=== PATIENT | female | born 1990 | race Caucasian/White ===

== ENCOUNTER 2017-01-26 08:41 | Emergency (ER) | payer MEDICAID ==
[2017-01-26] MEDS ORDERED: MARCAINE-EPI 0.5%-1:200,000 INFILTRATI ONE (11:57)
[2017-01-26] MEDS ORDERED: MOTRIN PO ONE (11:57)
--- NOTE | 2017-01-26 11:57 | Emergency Department Report ---
ED Female HPI - General Chief complaint: Urogenital-Female Stated complaint: POSS CYST Time Seen by Provider: 01/26/17 11:39 Source: patient Mode of arrival: Ambulatory Limitations: No Limitations - History of Present Illness Initial comments: This is a 26-year-old female well-nourished with nontoxic or ill in appearance but presents with a right labia minora cyst 2 days. Patient denies history of Bartholin's cyst/abscess 6 that was incision and drainage. Patient denies any fever, chills, headache, pus, drainage, chest pain, shortness of breath, numbness, tingling, bowel pain, stiff neck. She denies any allergies. Denies past medical history. -: Gradual, days(s) (2) Location: labia (minora, right) Radiation: non-radiating Severity: mild Severity scale (0 -10): 10 Quality: aching Consistency: constant Improves with: none Worsens with: none Are you Now?: No Last Menstrual Period: 01/04/17 EDC: 10/11/17 Associated Symptoms: denies other symptoms. denies: vaginal discharge, vaginal bleeding, abdominal pain, nausea/vomiting, fever/chills, headaches, loss of appetite, dysuria, hematuria, rash, seizure, shortness of breath, syncope, weakness - Related Data Sexually active: Yes Previous Rx's Medication Instructions Recorded Last Taken Type Cephalexin [Keflex] 500 mg PO Q8HR 7 Days 01/26/17 Unknown Rx Ibuprofen [Motrin 600 MG tab] 600 mg PO Q8H PRN #20 tablet 01/26/17 Unknown Rx Allergies Allergy/AdvReac Type Severity Reaction Status Date / Time No Known Allergies Allergy Unverified 01/26/17 08:46 ED Review of Systems ROS: Stated complaint: POSS CYST Other details as noted in HPI Constitutional: denies: chills, fever Eyes: denies: eye pain, eye discharge, vision change ENT: denies: ear pain, throat pain Respiratory: denies: cough, shortness of breath, wheezing Cardiovascular: denies: chest pain, palpitations Endocrine: no symptoms reported Gastrointestinal: denies: abdominal pain, nausea, diarrhea Genitourinary: denies: urgency, dysuria, discharge Musculoskeletal: denies: back pain, joint swelling, arthralgia Skin: denies: rash, lesions Neurological: denies: headache, weakness, paresthesias Psychiatric: denies: anxiety, depression Hematological/Lymphatic: denies: easy bleeding, easy bruising ED Past Medical Hx - Past Medical History Previous Medical History?: Yes Additional medical history: Boil/ Bartholin cyst - Surgical History Past Surgical History?: Yes Additional Surgical History: x 3 - Social History Smoking Status: Never Smoker Substance Use Type: Non Opiate Pain - Medications Home Medications: Home Medications Medication Instructions Recorded Confirmed Last Taken Type Cephalexin [Keflex] 500 mg PO Q8HR 7 Days 01/26/17 Unknown Rx Ibuprofen [Motrin 600 MG tab] 600 mg PO Q8H PRN #20 tablet 01/26/17 Unknown Rx ED Physical Exam - General Limitations: No Limitations General appearance: alert, in no apparent distress - Head Head exam: Present: atraumatic, normocephalic, normal inspection - Eye Eye exam: Present: normal appearance, PERRL, EOMI. Absent: scleral icterus, conjunctival injection, nystagmus, periorbital swelling, periorbital tenderness Pupils: Present: normal accommodation - ENT ENT exam: Present: normal exam, normal orophraynx, mucous membranes moist, TM's normal bilaterally, normal external ear exam - Neck Neck exam: Present: normal inspection, full ROM. Absent: tenderness, meningismus, lymphadenopathy, thyromegaly - Respiratory Respiratory exam: Present: normal lung sounds bilaterally. Absent: respiratory distress, wheezes, rales, rhonchi, stridor, chest wall tenderness, accessory muscle use, decreased breath sounds, prolonged expiratory - Cardiovascular Cardiovascular Exam: Present: regular rate, normal rhythm, normal heart sounds. Absent: bradycardia, tachycardia, irregular rhythm, systolic murmur, diastolic murmur, rubs, gallop - GI/Abdominal GI/Abdominal exam: Present: soft, normal bowel sounds. Absent: distended, tenderness, guarding, rebound, rigid, diminished bowel sounds - Rectal Rectal exam: Present: deferred - External exam: Present: normal external exam, swelling (right labia minora. No pus. No drainage. Tender to touch. No redness.), other (Fisher Hand Line Carneshia Delores present during exam and I/D.). Absent: erythema, lesions, lacerations , ecchymosis, bleeding - Extremities Exam Extremities exam: Present: normal inspection, full ROM, normal capillary refill. Absent: tenderness, pedal edema, joint swelling, calf tenderness - Back Exam Back exam: Present: normal inspection, full ROM. Absent: tenderness, CVA tenderness (R), CVA tenderness (L), muscle spasm, paraspinal tenderness, vertebral tenderness, rash noted - Neurological Exam Neurological exam: Present: alert, oriented X3, CN II-XII intact, normal gait - Psychiatric Psychiatric exam: Present: normal affect, normal mood - Skin Skin exam: Present: warm, dry, intact, normal color. Absent: rash ED Course Vital Signs 01/26/17 08:46 Temperature 99.3 F Pulse Rate 84 Respiratory 20 Rate Blood Pressure 103/83 O2 Sat by Pulse 99 Oximetry - Reevaluation(s) Reevaluation #1: 01/26/17 13:23 Patient tolerated procedure well with no signs of distress noted. - I & D Vagina Type of Procedure: Complex Site: right labia minora Blade Size: 11 I & D Procedure: betadine prep, sterile drapes applied Progress: Under sterile procedure, I used Betadine to cleanse the area. I then used 4 x 4 to try and clean the area. I used 25-gauge 5/8 hypo-to inject 0.5% Marcaine with epi 1-200,000 with total volume of 6 mL. I then used Betadine again cleansed area. I then used an 11 blade to make a decision of 1 cm to the site. About 2 mL of purulent drainage noted. I then used a hemostat to break down the abscess. I used 0.9% saline to flush the area with a total cc of 20. I then used one fourth iodoform packing. A sterile 4 x 4 with tape has in place as dressing. Patient's are well with no acute signs of distress or complications noted. directory assistance operator John Estrella present during I/D and vaginal exam. ED Medical Decision Making - Medical Decision Making Ed course: This is a 26-year-old female that presents with right Bartholin's abscess 1- after my physical exam, an I/D has been performed. Pt was instructed to return in 2 days for the evaluation/packing removal 2- patient received Keflex for 7 days 3- patient was also notified to follow up with a skein inspector in 24 hours or if symptoms worsen report back to emergency room as was possible. 4- at time time of discharge, the patient does not seem toxic or ill in appearance. No acute signs of distress noted. Patient agrees to discharge treatment plan of care. No further questions noted by the patient. 5- directory assistance operator John Estrella present during I/D and vaginal exam. Critical care attestation.: If time is entered above; I have spent that time in minutes in the direct care of this critically ill patient, excluding procedure time. ED Disposition Clinical Impression: Bartholin's gland abscess, Encounter for incision and drainage procedure Disposition: TO HOME OR SELFCARE Is pt being admited?: No Does the pt Need Aspirin: No Condition: Stable Instructions: Cephalexin (By mouth), Ibuprofen (By mouth), Abscess Incision and Drainage (ED), Acute Wound Care (ED), Bartholin Cyst (ED), Incision and Drainage (ED) Additional Instructions: Follow-up with her skein inspector in 24 hours and take full course of antibiotics as prescribed. If symptoms worsen return back to emergency room as well as possible Take ibuprofen as prescribed as needed for pain Prescriptions: Cephalexin [Keflex] 500 mg PO Q8HR 7 Days Ibuprofen [Motrin 600 MG tab] 600 mg PO Q8H PRN #20 tablet PRN Reason: Pain Referrals: PRIMARY CAREMD [Primary Care Provider] - 3-5 Days [facility] [Outside] - 3-5 Days [facility] [Outside] - 3-5 Days [facility] [Outside] - 3-5 Days [facility] [Provider Group] - 3-5 Days DEEPAK LOCKETT MD [Referring] - 3-5 Days Forms: Work/School Release Form(ED)
[2017-01-26 13:41] VITALS: BP 100/80
== END 2017-01-26 13:40 | disposition home or self-care (01) ==
LOC: ED 08:41
DX: N75.1 Abscess of Bartholin's gland (principal)

== ENCOUNTER 2019-02-10 07:30 | Emergency (ER) | payer MEDICAID, OTHER ==
[2019-02-10 08:18] LABS: Bacteria,Urine 2+ /HPF (Negative); Bilirubin,Urine NEG (Negative); Blood,Urine NEG (Negative); Color,Urine Yellow (Yellow); Mucus,Urine FEW /HPF; Protein,Urine <15 mg/dL mg/dL (Negative)
[2019-02-10 08:34] LABS: Basophils # (Auto) 0.1 K/mm3 (0.0-0.1); Basophils % (Auto) 0.7 % (0.0-1.8); Eosinophils # (Auto) 0.2 K/mm3 (0.0-0.4); Eosinophils % (Auto) 2.1 % (0.0-4.3); Hematocrit 31.7 % (30.3-42.9); Lymphocytes # (Auto) 1.9 K/mm3 (1.2-5.4); Lymphocytes % (Auto) 24.7 % (13.4-35.0); Mean Corpuscular HGB Conc 35 % (30-34); Mean Corpuscular Volume 90 fl (79-97); Monocytes # (Auto) 0.7 K/mm3 (0.0-0.8); Monocytes % (Auto) 8.8 % (0.0-7.3); Platelet Count 296 K/mm3 (140-440); Red Blood Count 3.53 M/mm3 (3.65-5.03); Red Cell Distribution Width 13.4 % (13.2-15.2)
[2019-02-10] MEDS ORDERED: ZOFRAN ODT PO ONE (08:53)
[2019-02-10] MEDS ORDERED: TYLENOL PO ONE (08:53)
[2019-02-10 08:57] LABS: Alanine Aminotransferase 12 units/L (7-56); Albumin 3.7 g/dL (3.9-5); BUN/Creatinine Ratio 11; Blood Urea Nitrogen 8 mg/dL (7-17); Calcium 8.9 mg/dL (8.4-10.2); Hemolysis Index 7
[2019-02-10] MEDS ORDERED: MACROBID PO ONE (10:03)
--- NOTE | 2019-02-10 10:04 | Emergency Department Report ---
ED Abdominal Pain HPI - General Chief Complaint: Abdominal Pain Stated Complaint: CRAMPING Time Seen by Provider: 02/10/19 08:15 Source: patient Mode of arrival: Ambulatory Limitations: No Limitations - History of Present Illness MD Complaint: abdominal pain -: Gradual, week(s) (1 approximately) Location: diffuse Radiation: none Migration to: no migration Severity scale (0 -10): 2 Quality: cramping Consistency: intermittent Improves With: nothing Worsens With: nothing Associated Symptoms: nausea. denies: vomiting, diarrhea, chills, constipation, dysuria, hematemesis, melena, hematuria, anorexia, syncope - Related Data LMP (females 10-50): unknown Previous Rx's Medication Instructions Recorded Last Taken Type Ibuprofen [Motrin 600 MG tab] 600 mg PO Q8H PRN #20 tablet 01/26/17 Unknown Rx cephALEXin [Keflex] 500 mg PO Q8HR 7 Days cap 01/26/17 Unknown Rx Acetaminophen [Acetaminophen TAB] 500 mg PO Q6HR PRN #16 tablet 02/10/19 Unknown Rx Nitrofurantoin [place]/M-Cryst 100 mg PO Q12HR 10 Days #20 capsule 02/10/19 Unknown Rx [Macrobid CAP] Allergies Allergy/AdvReac Type Severity Reaction Status Date / Time No Known Allergies Allergy Unverified 01/26/17 08:46 ED Review of Systems ROS: Stated complaint: CRAMPING Other details as noted in HPI Other: GENERAL: No weight change, fatigue, weakness, fever, chills, or night sweats SKIN: No changes in skin or hair, no itching, no rashes, no jaundice HEAD: No trauma, headache, or visual changes EYES: No blurriness, tearing, itching, acute visual loss, conjunctival discoloration, or scleral icterus EARS: No hearing loss, tinnitus, vertigo, or earache NOSE: No rhinorrhea, stuffiness, sneezing, itching, or epistaxis MOUTH: No bleeding gums, hoarseness, sore throat, or swelling CARDIAC: No new murmur, chest pain, palpitations, dyspnea on exertion, orthopnea, PND, or edema RESPIRATORY: No shortness of breath, wheeze, cough, sputum production, hemoptysis, pneumonia, asthma, bronchitis, or emphysema GI: Abdominal pain, nausea. No change in appetite, vomiting, dysphagia, change in bowel frequency, diarrhea, constipation, bleeding, hematemesis, melena, hematochezia URINARY: No frequency, urgency, polyuria, dysuria, hematuria, or incontinence MUSCULOSKELETAL: No muscle weakness, joint stiffness, decrease in range of motion, redness, swelling NEUROLOGIC: No loss of sensation, numbness, tingling, tremors, weakness, paralysis, seizures HEMATOLOGIC: No anemia, easy bruising, bleeding, petechiae, or purpura ENDOCRINE: No hot or cold intolerance, sweating, polyuria, polydipsia or, polyphagia no thyroid problems PSYCHIATRIC: No change in mood, no anxiety, no depression GENITAL: Female: No frequency or dysmenorrhea, no discharge, no bleeding ED Past Medical Hx - Past Medical History Previous Medical History?: No Additional medical history: Boil/ Bartholin cyst - Surgical History Additional Surgical History: x 3 - Social History Smoking Status: Never Smoker Substance Use Type: Alcohol - Medications Home Medications: Home Medications Medication Instructions Recorded Confirmed Last Taken Type Ibuprofen [Motrin 600 MG tab] 600 mg PO Q8H PRN #20 tablet 01/26/17 Unknown Rx cephALEXin [Keflex] 500 mg PO Q8HR 7 Days cap 01/26/17 Unknown Rx Acetaminophen [Acetaminophen TAB] 500 mg PO Q6HR PRN #16 tablet 02/10/19 Unknown Rx Nitrofurantoin [place]/M-Cryst 100 mg PO Q12HR 10 Days #20 capsule 02/10/19 Unknown Rx [Macrobid CAP] ED Physical Exam - General Limitations: No Limitations - Other Other exam information: GENERAL: Patient in no acute distress HEAD: Normocephalic, atraumatic EYES: PERRLA, EOM intact, no scleral icterus, no papilledema, no conjunctival hemorrhage, visual danielle and acuity wnl, NOSE: No tenderness, discharge, sinus tenderness MOUTH: No erythema, bleeding, exudate HEART: Regular rate and rhythm, no murmur, S1-S2 are auscultated, pulses are symmetric LUNGS: No wheezing, rales, rhonchi, bilateral breath sounds ABDOMEN: Normal bowel sounds, no tenderness, no rebound, no guarding, no masses, no CVA tenderness MUSCULOSKELETAL: Normal joint range of motion, no redness, no swelling, no tend erness NEUROLOGIC: GCS 15, Alert and Oriented x3, Cranial nerves intact, normal sensation, normal strength, normal gait, no cerebellar deficit PSYCHIATRIC: No homicidal or suicidal ideation, no anxiety, no depression, no hallucinations SKIN: Skin is warm and dry, no wounds, no rashes ED Course Vital Signs 02/10/19 02/10/19 07:43 09:14 Temperature 98.1 F Pulse Rate 73 Respiratory 16 16 Rate Blood Pressure 113/51 [Right] O2 Sat by Pulse 100 Oximetry ED Medical Decision Making - Lab Data Result diagrams: 02/10/19 08:14 02/10/19 08:14 Laboratory Results - last 24 hr 02/10/19 02/10/19 02/10/19 08:03 08:14 08:14 WBC 7.8 RBC 3.53 L Hgb 11.0 Hct 31.7 MCV 90 MCH 31 MCHC 35 H RDW 13.4 Plt Count 296 Lymph % (Auto) 24.7 [place] % (Auto) 8.8 H Eos % (Auto) 2.1 Baso % (Auto) 0.7 Lymph # 1.9 [place] # 0.7 Eos # 0.2 Baso # 0.1 Seg Neutrophils % 63.7 Seg Neutrophils # 5.0 Sodium 137 Potassium 3.4 L Chloride 102.5 Carbon Dioxide 23 Anion Gap 15 BUN 8 Creatinine 0.7 Estimated GFR > 60 BUN/Creatinine Ratio 11 Glucose 85 Calcium 8.9 Total Bilirubin 0.20 AST 21 ALT 12 Alkaline Phosphatase 67 Total Protein 7.1 Albumin 3.7 L Albumin/Globulin Ratio 1.1 HCG, Qual HCG, Quant Urine Color Yellow Urine Turbidity Slightly-cloudy Urine pH 6.0 Ur Specific [place] 1.021 Urine Protein <15 mg/dl Urine Glucose (UA) Neg Urine Ketones Neg Urine Blood Neg Urine Nitrite Neg Urine Bilirubin Neg Urine Urobilinogen 4.0 Ur Leukocyte Esterase Tr Urine WBC (Auto) 9.0 H Urine RBC (Auto) 2.0 U Epithel Cells (Auto) 2.0 Urine Bacteria (Auto) 2+ Urine Mucus Few Urine Yeast (Budding) Few 02/10/19 02/10/19 08:14 08:14 WBC RBC Hgb Hct MCV MCH MCHC RDW Plt Count Lymph % (Auto) [place] % (Auto) Eos % (Auto) Baso % (Auto) Lymph # [place] # Eos # Baso # Seg Neutrophils % Seg Neutrophils # Sodium Potassium Chloride Carbon Dioxide Anion Gap BUN Creatinine Estimated GFR BUN/Creatinine Ratio Glucose Calcium Total Bilirubin AST ALT Alkaline Phosphatase Total Protein Albumin Albumin/Globulin Ratio HCG, Qual Positive HCG, Quant 9787 H Urine Color Urine Turbidity Urine pH Ur Specific [place] Urine Protein Urine Glucose (UA) Urine Ketones Urine Blood Urine Nitrite Urine Bilirubin Urine Urobilinogen Ur Leukocyte Esterase Urine WBC (Auto) Urine RBC (Auto) U Epithel Cells (Auto) Urine Bacteria (Auto) Urine Mucus Urine Yeast (Budding) - Radiology Data Radiology results: report reviewed - Medical Decision Making At 1303 patient comfortable. Updated with results. Plan discharge with outpatient follow up. Return if any worsening. Critical care attestation.: If time is entered above; I have spent that time in minutes in the direct care of this critically ill patient, excluding procedure time. ED Disposition Clinical Impression: Abdominal pain affecting UTI (urinary tract infection) Qualifiers: Urinary tract infection type: site unspecified Hematuria presence: without hematuria Qualified Code(s): N39.0 - Urinary tract infection, site not specified Disposition: TO HOME OR SELFCARE Is pt being admited?: No Condition: Stable Instructions: Abdominal Pain (ED), Threatened Miscarriage (ED), Urinary Tract Infection in Women (ED) Prescriptions: Acetaminophen [Acetaminophen TAB] 500 mg PO Q6HR PRN #16 tablet PRN Reason: Pain, Moderate (4-6) Nitrofurantoin [place]/M-Cryst [Macrobid CAP] 100 mg PO Q12HR 10 Days #20 capsule Referrals: MARTHA VAZQUEZ MD [Primary Care Provider] - 2-3 Days [facility] [Provider Group] - 2-3 Days [facility] [Outside] - as needed Time of Disposition: 13:05
--- NOTE | 2019-02-10 12:33 | Ultrasound Report ---
PROCEDURE: US OB <= 14 WEEKS FETUS TECHNIQUE: Transabdominal and transvaginal early obstetrical ultrasound. HISTORY: pain COMPARISON: None FINDINGS: Uterus measures 9.1 x 4.8 x 4.8 cm. There is a small gestational sac in the uterus. Mean sac diameter of 16.9 mm roughly corresponds to 6 weeks 9 days. No pole seen. A yolk sac is questionably seen on transvaginal images. Fetus is u sually visualized in a sac this size. There is no abnormal adnexal mass. Right ovary not visualized. Left ovary measures 3.1 x 2.1 x 2.4 cm . There is a 2 cm left ovarian cyst/corpus luteum. There is no free fluid. IMPRESSION: There is a gestational sac in the uterus but no pole or yolk sac seen. Its size ro ughly corresponds to 6 weeks 9 days gestational age. A fetus is usually visualized in the sac the siz e. Suspect nonviable . As precaution, short-term follow-up recommended. This document is electronically signed by Fauzia Rodriguez MD., February 10 2019 12:31:24 PM ET
[2019-02-10 13:25] VITALS: BP 118/68
== END 2019-02-10 13:30 | disposition home or self-care (01) ==
LOC: ED 07:30
DX: O23.41 Unspecified infection of urinary tract in pregnancy, first trimester (principal); O34.81 Maternal care for other abnormalities of pelvic organs, first trimester; N75.0 Cyst of Bartholin's gland; Z79.899 Other long term (current) drug therapy; Z3A.01 Less than 8 weeks gestation of pregnancy
CPT/HCPCS: 36415; 76801; 76817; 80053; 81001; 84702; 84703; 85025; 87076; 87086; 87186; 99284; Q0162